=== PATIENT | female | born 1970 | race Caucasian/White ===

== ENCOUNTER → 2020-09-02 | Outpatient (CLI) | payer OTHER ==
[~2020-09-02] MED LIST: COVID-19 VACC, MRNA(MODERNA)/PF 100 MCG/0.5 ML VIAL IM ONE
== END | disposition home or self-care (01) ==
LOC: VACCPMC 09:00
DX: Z23 Encounter for immunization (principal); Z20.822 Contact with and (suspected) exposure to COVID-19

== ENCOUNTER → 2020-10-01 | Outpatient (CLI) | payer OTHER | END | DRG 951 | LOC: VACCPMC 12:25 | DX: Z23 Encounter for immunization (principal); Z20.822 Contact with and (suspected) exposure to COVID-19 | CPT/HCPCS: 0012A; 91301 ==

== ENCOUNTER → 2021-06-24 | Outpatient (CLI) | payer OTHER | LOC: MAMMO 09:44 | PROVIDERS: ATTEND Obstetrics & Gynecology | DX: Z12.31 Encounter for screening mammogram for malignant neoplasm of breast (principal) | CPT/HCPCS: 77067 ==

== ENCOUNTER → 2021-06-26 | Outpatient (CLI) | payer OTHER | END | disposition home or self-care (01) | LOC: VACCPMC 09:00 | DX: Z23 Encounter for immunization (principal); Z20.822 Contact with and (suspected) exposure to COVID-19 | CPT/HCPCS: 91301 ==

== ENCOUNTER 2024-06-21 14:42 | Emergency (ER) | payer BC ==
[~2024-06-21] VITALS: Ht 172.7 cm; Wt 79.0 kg
[2024-06-21] MEDS: SODIUM CHLORIDE 0.9% 1000ML 1,000 ML IV ONE (16:44)
[2024-06-21] MEDS ORDERED: METOPROLOL SUCCINATE 50 MG TAB XL PO ONE (17:00)
[2024-06-21 17:39] VITALS: BP 151/91; PULSE 83
[2024-06-21] MEDS: METOPROLOL TARTRATE 50 MG TAB PO ONE (17:39)
[2024-06-21] MEDS ORDERED: METOPROLOL SUCC50 MG PO (18:34)
[2024-06-21 18:57] VITALS: PULSE 68; RESP 16; TEMP 98.3; O2SAT 99
== END 2024-06-21 18:57 | disposition home or self-care (01) ==
LOC: FSED 14:47
DX: R42 Dizziness and giddiness (principal); I10 Essential (primary) hypertension; F41.9 Anxiety disorder, unspecified; R94.31 Abnormal electrocardiogram [ECG] [EKG]; F17.290 Nicotine dependence, other tobacco product, uncomplicated
CPT/HCPCS: 70450; 71046; 80053; 81003; 82553; 84484; 85025; 85379; 93005; 96360; 99284; J7030

== ENCOUNTER → 2024-12-10 | Outpatient (REF) | payer BC ==
[~2024-12-10] MED LIST changes: -COVID-19 VACC, MRNA(MODERNA)/PF 100 MCG/0.5 ML VIAL IM ONE; +METOPROLOL SUCC50 MG PO
== END ==
LOC: MAMMO 10:36
PROVIDERS: ATTEND Family Medicine
DX: Z12.31 Encounter for screening mammogram for malignant neoplasm of breast (principal)
CPT/HCPCS: 77067